=== PATIENT | female | born 1990 | race Caucasian/White ===

== ENCOUNTER 2021-02-01 07:56 | Emergency (ER) | payer MEDICAID, SELFPAY ==
--- NOTE | ~2021-02-01 | US_ITS ---
EXAMINATION: US OBSTETRICAL ULTRASOUND CLINICAL INFORMATION: 10 weeks . Bleeding. COMPARISON: None. LMP: 11/19/2020. Gestational age by maternal dates is 10 weeks 4 day. Estimated date of delivery by maternal dates is 08/26/2021. TECHNIQUE: Transabdominal OB ultrasound FINDINGS: There is a single intrauterine gestational sac with visible yolk sac, embryo/fetus, and cardiac activity. There is no significant subchorionic hemorrhage or hematoma. There is a posterior right uterine fibroid measuring 1.8 x 1.1 x 1.4 cm. HR: 163 beats per minute. CRL (crown rump length): 3.7 cm (10 weeks 5 days +/- 4 days). BRIAN (estimated date of delivery): 08/25/2021 +/- 4 days. MATERNAL ADNEXA: The right maternal ovary measures 2.5 x 2.1 x 2.7 cm. there is a 2.1 x 1.6 x 1.9 cm right ovarian cyst. The left maternal ovary is enlarged and measures 6.4 x 4.9 x 3.7 cm. There is a 5.3 x 4 x 3.2 cm slightly complex left ovarian cyst. Arterial and venous flow is documented to the left ovary. There is no significant maternal adnexal mass. No maternal pelvic ascites. US/US OB <= 14 weeks fetus IMPRESSION: 1. Single intrauterine gestation with ultrasound gestational age of 10 weeks 5 days +/- 4 days. 2. Estimated date of delivery is 08/25/2021 +/- 4 days. 3. Large 5.3 x 4 x 3.2 cm left ovarian cyst. Small right posterior uterine fibroid.
[2021-02-01 08:30] VITALS: BP 121/74; PULSE 90; RESP 18; TEMP 36.9; O2SAT 98; BMI 37.9
--- NOTE | 2021-02-01 08:58 | ED_ITS ---
HPI - Female Genitourinary General Chief complaint: Urogenital-Female Stated complaint: blood in urine, 10 weeks Time Seen by Provider: 02/01/21 08:35 Source: patient Mode of arrival: ambulatory Limitations: no limitations History of Present Illness HPI Narrative: 30 y/o female G1 who is 10 weeks presenting with new onset of light vaginal bleeding that started last night. She reports it has been light pink when she wipes after she urinates 3-4 times and she has some small pinkish area on her panty liner. No blood clots, tissue or dark blood passed. No abdominal pain, cramping or vaginal discharge. No dysuria. She is urinating more frequently the last 1 week. She is due to see her [facility]ER at the beginning of February. elicited complaint: vaginal bleeding Onset (ago): day(s) (1) Severity: mild Consistency: intermittent and improved Vaginal discharge: none Vaginal bleeding: scant Urinary symptoms: Frequency Exacerbating factors: none Relieving factors: none Associated symptoms: denies other symptoms Treatment prior to arrival: none Sexual activity: Yes Patient : Yes Possible : at home test positive Related Data : 1 Previous Rx's Medication Instructions Recorded cephalexin 500 mg PO Q8H #15 cap 02/01/21 Allergies Allergy/AdvReac Type Severity Reaction Status Date / Time shellfish derived Allergy Intermediate DIARRHEA/VO Unverified 07/29/20 15:49 [SHELLFISH DERIVED] MITING Review of Systems Review of Systems: Constitutional: No Fever, No Chills Cardiovascular: No Chest Pain, No SOB Respiratory: No Cough, No Sputum Gastrointestinal: No Nausea, No Vomiting, No Diarrhea, No abdominal Pain, No Hematochezia, No Melena Genitourinary: No Dysuria, + Urinary Frequency, No Hematuria, +vaginal bleeding Neuro: No Weakness,No Dizziness, Psych: + Anxiety/Panic PMFSH Past Medical History : 1 Social History Social History Advance Directives: Yes Advance Directives Information Provided: Yes Advance Directives on File: No Physical Exam Vital Signs: Vital Signs: Last Vital Signs Temp 98.4 F 02/01/21 08:30 Pulse 90 02/01/21 08:30 Resp 18 02/01/21 08:30 BP 121/74 02/01/21 08:30 Pulse Ox 98 02/01/21 08:30 Body Mass Index 37.9 Appearance: Alert. Oriented X3. No acute distress. Eyes: Pupils equal, round and reactive to light. ENT: Pharynx normal. Neck: Normal inspection. Neck supple. CVS: Normal heart rate and rhythm. Pulses normal. Respiratory: No respiratory distress. Breath sounds normal. Abdomen: Soft and nontender. +BS x4. Pelvic examination with no blood in vaginal vault, cervix is closed. Skin: Skin warm and dry. Normal skin color. Normal skin turgor. No rashes. Extremities: No lower extremity edema. Neuro: Oriented X 3. Non-focal, steady gait Course Course Course Narrative: 30 y/o female G1 who is 10 weeks presenting with painless light vaginal spotting since last night. No passing of clots and no pain. Will get basic lab workup as well as pelvic ultrasound and serum HCG. Doubt miscarriage given her clinical presentation. Reevaluation(s) Reevaluation #1: Pelvic U/S: IMPRESSION: 1. Single intrauterine gestation with ultrasound gestational age of 10 weeks 5 days +/- 4 days. 2. Estimated date of delivery is 08/25/2021 +/- 4 days. 3. Large 5.3 x 4 x 3.2 cm left ovarian cyst. Small right posterior uterine fibroid. UA is indicative of possible UTI. Will treat. This could be the cause of her spotting. She has been counseled on her lab results and US results. She was counseled on signs and symptoms of threatened and miscarriage. She will follow up with her [facility] as scheduled and come back to the ER if bleeding worsens or if she develops abdominal pain. Patient expressed understanding. She is stable for discharge. MDM - Female Genitourinary Medical Records Attestation: I reviewed the patient's medical records. Lab Data Attestation: I reviewed the patient's lab results. Result diagrams: 02/01/21 09:21 02/01/21 09:21 Labs: Lab Results 02/01/21 02/01/21 02/01/21 Range/Units 09:20 09:21 09:21 WBC 11.0 H (4.8-10.8) X10*3/uL RBC 4.84 (4.20-5.50) X10*6/uL Hgb 12.7 (12.0-16.0) g/dl Hct 39.3 (37-47) % MCV 81.2 (80-98) fL MCH 26.2 L (27.0-33.0) pg MCHC 32.3 (31.0-35.0) g/dl RDW 14.4 (11.0-16.0) % Plt Count 244 (160-400) X10*3/uL MPV 11.3 (9.4-12.3) fL Immature Gran % (Auto) 1.5 H (0.0-0.4) % Neut % (Auto) 77.2 H (45-73) % Lymph % (Auto) 13.6 L (20-40) % Emmons % (Auto) 6.5 (2-11) % Eos % (Auto) 0.7 (0-4) % Baso % (Auto) 0.5 (0-2) % Lymph # (Auto) 1.5 (1.2-4.9) X10*3/uL Emmons # (Auto) 0.7 (0.1-1.2) X10*3/uL Eos # (Auto) 0.1 (0.0-0.4) X10*3/uL Baso # (Auto) 0.1 (0.0-0.2) X10*3/uL Abs Immat Gran (auto) 0.17 H (0.00-0.03) X10*3/uL Absolute Neuts (auto) 8.5 H (2.0-8.3) X10*3/uL Absolute Nucleated RBC 0.000 (0.0-0.012) X10*3/uL Nucleated RBC % (auto) 0.0 (0.0-0.2) /100WBC Sodium 137 (135-145) mmol/L Potassium 4.0 (3.3-5.1) mmol/L Chloride 108 (96-108) mmol/L Carbon Dioxide 22 (22-29) mmol/L Anion Gap 11 L (12-20) BUN 5 L (9-16) mg/dL Creatinine 0.61 (0.5-1.4) mg/dL Estim Creat Clear Calc 136.0 Estimated GFR > 60 Random Glucose 84 (60-115) mg/dL Calcium 8.7 (8.4-10.2) mg/dL Magnesium 2.0 (1.6-2.6) mg/dL Total Bilirubin 0.5 (0.0-1.0) mg/dL Direct Bilirubin < 0.2 (0.0-0.5) mg/dL AST 22 (5-31) U/L ALT 33 H (0-31) U/L Alkaline Phosphatase 68 (39-117) U/L Total Protein 6.7 (6.5-8.0) g/dL Albumin 3.8 (3.5-5.0) g/dL Beta HCG, Quant 085322 mIU/mL Urine Color Urine Appearance Urine pH (5.0-8.0) Ur Specific [place] (1.005-1.025) Urine Protein (NEG-TRACE) MG/DL Urine Glucose (UA) (NEG) MG/DL Urine Ketones (NEG) MG/DL Urine Blood (NEG) Urine Nitrite (NEG) Ur Leukocyte Esterase (NEG) Urine RBC (0) /HPF Urine WBC (0-4) /HPF Ur Squamous Epith Cells /LPF Urine Bacteria /LPF Urine Mucus /LPF Urine Test POSITIVE H (NEGATIVE) 02/01/21 Range/Units 09:21 WBC (4.8-10.8) X10*3/uL RBC (4.20-5.50) X10*6/uL Hgb (12.0-16.0) g/dl Hct (37-47) % MCV (80-98) fL MCH (27.0-33.0) pg MCHC (31.0-35.0) g/dl RDW (11.0-16.0) % Plt Count (160-400) X10*3/uL MPV (9.4-12.3) fL Immature Gran % (Auto) (0.0-0.4) % Neut % (Auto) (45-73) % Lymph % (Auto) (20-40) % Emmons % (Auto) (2-11) % Eos % (Auto) (0-4) % Baso % (Auto) (0-2) % Lymph # (Auto) (1.2-4.9) X10*3/uL Emmons # (Auto) (0.1-1.2) X10*3/uL Eos # (Auto) (0.0-0.4) X10*3/uL Baso # (Auto) (0.0-0.2) X10*3/uL Abs Immat Gran (auto) (0.00-0.03) X10*3/uL Absolute Neuts (auto) (2.0-8.3) X10*3/uL Absolute Nucleated RBC (0.0-0.012) X10*3/uL Nucleated RBC % (auto) (0.0-0.2) /100WBC Sodium (135-145) mmol/L Potassium (3.3-5.1) mmol/L Chloride (96-108) mmol/L Carbon Dioxide (22-29) mmol/L Anion Gap (12-20) BUN (9-16) mg/dL Creatinine (0.5-1.4) mg/dL Estim Creat Clear Calc Estimated GFR Random Glucose (60-115) mg/dL Calcium (8.4-10.2) mg/dL Magnesium (1.6-2.6) mg/dL Total Bilirubin (0.0-1.0) mg/dL Direct Bilirubin (0.0-0.5) mg/dL AST (5-31) U/L ALT (0-31) U/L Alkaline Phosphatase (39-117) U/L Total Protein (6.5-8.0) g/dL Albumin (3.5-5.0) g/dL Beta HCG, Quant mIU/mL Urine Color YELLOW Urine Appearance HAZY Urine pH 8.5 H (5.0-8.0) Ur Specific [place] 1.020 (1.005-1.025) Urine Protein NEG (NEG-TRACE) MG/DL Urine Glucose (UA) NEG (NEG) MG/DL Urine Ketones NEG (NEG) MG/DL Urine Blood 3+ H (NEG) Urine Nitrite NEG (NEG) Ur Leukocyte Esterase 1+ H (NEG) Urine RBC 5-9 H (0) /HPF Urine WBC 15-29 H (0-4) /HPF Ur Squamous Epith Cells 3+ /LPF Urine Bacteria 2+ /LPF Urine Mucus 1+ /LPF Urine Test (NEGATIVE) Critical Care Time Critical Care Time Critical Care Time: No Discharge Plan Discharge Clinical Impression: Urinary tract infection Qualifiers: Urinary tract infection type: acute cystitis Hematuria presence: with hematuria Qualified Code(s): N30.01 - Acute cystitis with hematuria Qualifiers: Weeks of gestation: 10 weeks Qualified Code(s): Z3A.10 - 10 weeks gestation of Ovarian cyst Qualifiers: Laterality: left Qualified Code(s): N83.202 - Unspecified ovarian cyst, left side Uterine fibroid Qualifiers: Uterine leiomyoma location: unspecified location Qualified Code(s): D25.9 - Leiomyoma of uterus, unspecified Patient Disposition: Home, Self-Care Instructions: Urinary Tract Infection in (ED), at 11 to 14 Weeks (ED) Additional Instructions: Your lab workup today showed a possible urinary tract infection. Take the prescribed antibiotic as directed for this. Drink plenty of water and stay hydrated. Your ultrasound today showed an intrauterine with estimated due date of 08/25/21. It also showed an ovarian cyst on the left side and a small uterine fibroid. Recommend following up with your [facility] as scheduled. If you develop worsening vaginal bleeding or develop abdominal pain and cramping, come back to the ER for further evaluation. Prescriptions: New cephalexin 500 mg capsule 500 mg PO Q8H Qty: 15 RF: 0 Discharge Date/Time: 02/01/21 11:26
[2021-02-01 09:27] LABS: MANUAL DIFF FLAG NO
[2021-02-01 09:29] LABS: Basophils Absolute Auto 0.1 X10*3/uL (0.0-0.2); Basophils Percent Auto 0.5 % (0-2); Eosinophils Absolute Auto 0.1 X10*3/uL (0.0-0.4); Eosinophils Percent Auto 0.7 % (0-4); Hematocrit 39.3 % (37-47); Hemoglobin 12.7 g/dl (12.0-16.0); Imm Gran Abs Auto 0.17 X10*3/uL (0.00-0.03); Imm Gran Pct Auto 1.5 % (0.0-0.4); Lymphocytes Absolute Auto 1.5 X10*3/uL (1.2-4.9); Lymphocytes Percent Auto 13.6 % (20-40); Mean Corpuscular HGB Conc 32.3 g/dl (31.0-35.0); Mean Corpuscular Hemoglobin 26.2 pg (27.0-33.0); Mean Corpuscular Volume 81.2 fL (80-98); Mean Platelet Volume 11.3 fL (9.4-12.3); Monocytes Absolute Auto 0.7 X10*3/uL (0.1-1.2); Monocytes Percent Auto 6.5 % (2-11); Neutrophils Absolute Auto 8.5 X10*3/uL (2.0-8.3); Neutrophils Percent Auto 77.2 % (45-73); Platelet Count 244 X10*3/uL (160-400); Red Blood Count 4.84 X10*6/uL (4.20-5.50); Red Cell Distribution Width 14.4 % (11.0-16.0)
[2021-02-01 09:35] LABS: Glucose Urine UA NEG (NEG); Leukocyte Esterase Urine 1+ (NEG); Nitrite Urine NEG (NEG); PH 8.5 (5.0-8.0); UACC Culture Trigger YES; Urine Blood 3+ (NEG); Urine Ketones NEG (NEG); Urine Protein NEG (NEG-TRACE)
[2021-02-01 09:35] LABS: UPreg QC Valid YES; Urine Pregnancy POSITIVE (NEGATIVE)
[2021-02-01 09:37] LABS: Appearance Urine HAZY; Color Urine YELLOW
[2021-02-01 09:47] LABS: Bacteria Urine 2+ /LPF; Mucus Urine 1+ /LPF; Squamous Epithelial Cell Urine 3+ /LPF
[2021-02-01 09:58] LABS: Alanine Aminotransferase 33 U/L (0-31); Albumin Level 3.8 g/dL (3.5-5.0); Alkaline Phosphatase 68 U/L (39-117); Anion Gap 11 (12-20); Aspartate Amino Transferase 22 U/L (5-31); Bilirubin Direct < 0.2 mg/dL (0.0-0.5); Bilirubin Total 0.5 mg/dL (0.0-1.0); Blood Urea Nitrogen 5 mg/dL (9-16); Calcium 8.7 mg/dL (8.4-10.2); Carbon Dioxide 22 mmol/L (22-29); Chloride 108 mmol/L (96-108); Estimated Glomerular Filt Rate > 60; Glucose Random 84 mg/dL (60-115); Sodium 137 mmol/L (135-145); Total Protein 6.7 g/dL (6.5-8.0)
[2021-02-01 10:00] VITALS: BP 120/68; PULSE 88; RESP 18; TEMP 36.9; O2SAT 98
== END 2021-02-01 11:26 | disposition home or self-care (01) ==
PROVIDERS: Physician Assistant; Emergency Provider Emergency Medicine Emergency Medical Services; PCP Internal Medicine
DX: O23.11 Infections of bladder in pregnancy, first trimester (principal); N30.01 Acute cystitis with hematuria; O34.81 Maternal care for other abnormalities of pelvic organs, first trimester; N83.292 Other ovarian cyst, left side; O34.11 Maternal care for benign tumor of corpus uteri, first trimester; Z3A.10 10 weeks gestation of pregnancy
CPT/HCPCS: 36415; 76801; 80048; 80076; 81001; 81003; 81025; 83735; 84702; 85025; 87086; 99284

== ENCOUNTER 2021-03-17 13:47 | Outpatient (REF) | payer OTHER, SELFPAY ==
[2021-03-17 14:18] LABS: COVID-19 Test Negative (Negative); IDNOW Serial# 55D5AD1C
== END 2021-03-17 13:48 | disposition home or self-care (01) ==
LOC: HO.LAB 13:47
PROVIDERS: Visit Provider Internal Medicine
DX: Z20.822 Contact with and (suspected) exposure to COVID-19 (principal)
CPT/HCPCS: 36415; 87635; C9803

== ENCOUNTER 2022-02-02 14:30 | Emergency (ER) | payer OTHER, SELFPAY ==
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
[2022-02-02 15:08] VITALS: BP 126/71; PULSE 94; RESP 16; TEMP 36.3; O2SAT 99; BMI 37.8
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
[2022-02-02 16:49] VITALS: BP 130/66; PULSE 76; RESP 18; O2SAT 99
== END 2022-02-02 16:57 | disposition home or self-care (01) ==
PROVIDERS: Emergency Provider Emergency Medicine; PCP Internal Medicine
DX: S80.02XA Contusion of left knee, initial encounter (principal); S40.012A Contusion of left shoulder, initial encounter; S16.1XXA Strain of muscle, fascia and tendon at neck level, initial encounter; S39.012A Strain of muscle, fascia and tendon of lower back, initial encounter; V43.62XA Car passenger injured in collision with other type car in traffic accident, initial encounter; Y93.89 Activity, other specified; Y92.414 Local residential or business street as the place of occurrence of the external cause; Y99.9 Unspecified external cause status
CPT/HCPCS: 72100; 73030; 73562; 99283; 99284

== ENCOUNTER 2022-08-24 22:15 | Emergency (ER) | payer OTHER, SELFPAY ==
--- NOTE | 2022-08-24 22:16 | ECG_ITS ---
Test Reason : dizness Blood Pressure : / mmHG Vent. Rate : 078 BPM Atrial Rate : 078 BPM P-R Int : 138 ms QRS Dur : 080 ms QT Int : 366 ms P-R-T Axes : 036 041 011 degrees QTc Int : 417 ms Normal sinus rhythm Normal ECG When compared with ECG of 10-DEC-2003 22:37, PREVIOUS ECG IS PRESENT No significant changes seen Referred By: Generic ED Physician Electronically Signed By:INES CARVER MD
[2022-08-24 22:17] VITALS: BP 119/72; PULSE 96; RESP 18; TEMP 37.2; O2SAT 99; BMI 47.2
[2022-08-24 22:43] LABS: MANUAL DIFF FLAG NO
[2022-08-24 22:45] LABS: Basophils Percent Auto 0.4 % (0-2); Eosinophils Absolute Auto 0.1 X10*3/uL (0.0-0.4); Eosinophils Percent Auto 1.3 % (0-4); Hematocrit 40.6 % (37.0-47.0); Hemoglobin 12.9 g/dl (12.0-16.0); Lymphocytes Absolute Auto 2.3 X10*3/uL (1.2-4.9); Mean Corpuscular HGB Conc 31.8 g/dl (31.0-35.0); Mean Corpuscular Hemoglobin 25.9 pg (27.0-33.0); Mean Corpuscular Volume 81.4 fL (80.0-98.0); Mean Platelet Volume 10.7 fL (9.4-12.3); Monocytes Absolute Auto 0.7 X10*3/uL (0.1-1.2); Monocytes Percent Auto 6.5 % (2-11); Neutrophils Absolute Auto 7.1 x10*3/uL (2.0-8.3); Neutrophils Percent Auto 68.8 % (45-73); Platelet Count 267 X10*3/uL (160-400); Red Blood Count 4.99 X10*6/uL (4.20-5.50); Red Cell Distribution Width 13.3 % (11.0-16.0); White Blood Count 10.2 X10*3/uL (4.8-10.8)
[2022-08-24 23:03] LABS: COVID-19 Test Negative (Negative)
[2022-08-24 23:11] LABS: Alanine Aminotransferase 107 U/L (0-31); Alkaline Phosphatase 114 U/L (39-117); Anion Gap 14 (12-20); Aspartate Amino Transferase 70 U/L (5-31); Bilirubin Direct < 0.2 mg/dL (0.0-0.5); Bilirubin Total 0.2 mg/dL (0.0-1.0); Blood Urea Nitrogen 9 mg/dL (9-16); Calcium 8.8 mg/dL (8.4-10.2); Carbon Dioxide 22 mmol/L (22-29); Chloride 107 mmol/L (96-108); Creatinine Clr Calc Pharmacy 128.6; Estimated Glomerular Filt Rate > 60; Glucose Random 88 mg/dL (60-115); Lipase 13 U/L (8-78); Potassium 3.9 mmol/L (3.3-5.1); Sodium 139 mmol/L (135-145); Total Protein 7.1 g/dL (6.5-8.0); Troponin-I High Sensitivity < 3.5 ng/L (<3.5-17.0)
[2022-08-24 23:16] LABS: Appearance Urine Clear; Color Urine Yellow; Glucose Urine UA Negative (Negative); Leukocyte Esterase Urine Negative (Negative); Nitrite Urine Negative (Negative); PH 5.5 (5.0-9.0); Specific Gravity - Urine >= 1.030 (1.005-1.025); Urine Blood Negative (Negative); Urine Ketones Negative (Negative); Urine Protein Trace mg/dL (Neg-Trace)
[2022-08-24 23:18] LABS: UPreg QC Valid YES; Urine Pregnancy NEGATIVE (NEGATIVE)
[2022-08-25 00:25] VITALS: BP 112/66; PULSE 76; RESP 16; TEMP 36.7; O2SAT 97
--- NOTE | 2022-08-25 01:27 | ED.DIZZY ---
HPI - Dizziness General Chief Complaint: Dizziness Stated Complaint: dizziness,nausea Time Seen by Provider: 08/25/22 01:24 Source: patient Mode of arrival: ambulatory Limitations: no limitations History of Present Illness HPI Narrative: Patient having nausea for last few weeks become very dizzy today and had a left-sided headache does have history of tension headache no abdominal pain no vomiting Related Data Previous Rx's Medication Instructions Recorded cephalexin 500 mg capsule 500 mg PO Q8H #15 caps 02/01/21 [id number]-mzohcmztmnwis-yqizmrtx 1 cap PO Q6H PRN headache #20 caps 08/25/22 50 mg-300 mg-40 mg capsule (Fioricet) meclizine 25 mg tablet 25 mg PO TID PRN dizziness #20 tabs 08/25/22 Allergies Allergy/AdvReac Type Severity Reaction Status Date / Time shellfish derived Allergy Intermediate DIARRHEA/VO Verified 02/02/22 15:11 [SHELLFISH DERIVED] MITING Review of Systems Review of Systems: Yes all other systems are reviewed and are negative [facility] Past Medical History Medical History No known health problems Social History Social History Advance Directives: No Advance Directives Information Provided: No Physical Exam Vital Signs: Vital Signs: Last Vital Signs Temp 98.0 F 08/25/22 00:25 Pulse 76 08/25/22 00:25 Resp 16 08/25/22 00:25 BP 112/66 08/25/22 00:25 Pulse Ox 97 08/25/22 00:25 O2 Del Method 08/25/22 00:25 BMI result Body Mass Index 47.2 Appearance: Alert. Oriented X3. No acute distress. Eyes: PERRLA, No Nystagmus ENT: Pharynx normal. Oral Mucosa moist Neck: Normal inspection. Neck supple. CVS: Normal heart rate and rhythm. Pulses normal. Respiratory: No respiratory distress. Equal air entry bilateral, no wheezing/rales/rhonchi Abdomen: Soft and nontender. Bowel sounds are present, no mass palpable, no CVA tenderness Skin: Skin warm and dry. Normal skin color. Normal skin turgor. Extremities: No lower extremity edema. No calf tenderness Neuro: Oriented X 3. No motor deficit. No sensory deficit.No cerebellar signs , cranial nerves II-XII intact MDM - Dizziness MDM Narrative Medical decision making narrative: Patient with benign positional vertigo feeling much better after meclizine discharge patient home Lab Data Attestation: I reviewed the patient's lab results. Result diagrams: 08/24/22 22:37 08/24/22 22:37 Labs: Lab Results 08/24/22 08/24/22 08/24/22 Range/Units 22:37 22:37 22:37 WBC 10.2 (4.8-10.8) X10*3/uL RBC 4.99 (4.20-5.50) X10*6/uL Hgb 12.9 (12.0-16.0) g/dl Hct 40.6 (37.0-47.0) % MCV 81.4 (80.0-98.0) fL MCH 25.9 L (27.0-33.0) pg MCHC 31.8 (31.0-35.0) g/dl RDW 13.3 (11.0-16.0) % Plt Count 267 (160-400) X10*3/uL MPV 10.7 (9.4-12.3) fL Immature Gran % (Auto) 1.0 H (0.0-0.4) % Neut % (Auto) 68.8 (45-73) % Lymph % (Auto) 22.0 (20-40) % Graves % (Auto) 6.5 (2-11) % Eos % (Auto) 1.3 (0-4) % Baso % (Auto) 0.4 (0-2) % Lymph # (Auto) 2.3 (1.2-4.9) X10*3/uL Graves # (Auto) 0.7 (0.1-1.2) X10*3/uL Eos # (Auto) 0.1 (0.0-0.4) X10*3/uL Baso # (Auto) 0.0 (0.0-0.2) X10*3/uL Abs Immat Gran (auto) 0.10 H (0.00-0.03) X10*3/uL Absolute Neuts (auto) 7.1 (2.0-8.3) x10*3/uL Absolute Nucleated RBC 0.000 (0.0-0.012) X10*3/uL Nucleated RBC % (auto) 0.0 (0.0-0.2) /100WBC Sodium 139 (135-145) mmol/L Potassium 3.9 (3.3-5.1) mmol/L Chloride 107 (96-108) mmol/L Carbon Dioxide 22 (22-29) mmol/L Anion Gap 14 (12-20) BUN 9 (9-16) mg/dL Creatinine 0.72 (0.5-1.4) mg/dL Estim Creat Clear Calc 128.6 Estimated GFR > 60 Random Glucose 88 (60-115) mg/dL Calcium 8.8 (8.4-10.2) mg/dL Total Bilirubin 0.2 (0.0-1.0) mg/dL Direct Bilirubin < 0.2 (0.0-0.5) mg/dL AST 70 H (5-31) U/L ALT 107 H (0-31) U/L Alkaline Phosphatase 114 D (39-117) U/L Troponin I High Sens (<3.5-17.0) ng/L Total Protein 7.1 (6.5-8.0) g/dL Albumin 4.0 (3.5-5.0) g/dL Lipase 13 (8-78) U/L Urine Color Urine Appearance Urine pH (5.0-9.0) Ur Specific [place] (1.005-1.025) Urine Protein (Neg-Trace) mg/dL Urine Glucose (UA) (Negative) mg/dL Urine Ketones (Negative) mg/dL Urine Blood (Negative) Urine Nitrite (Negative) Ur Leukocyte Esterase (Negative) Urine Test (NEGATIVE) COVID-19 (TREVOR) Negative (Negative) COVID-19 Clin Com See Note 08/24/22 08/24/22 08/24/22 Range/Units 22:37 23:06 23:06 WBC (4.8-10.8) X10*3/uL RBC (4.20-5.50) X10*6/uL Hgb (12.0-16.0) g/dl Hct (37.0-47.0) % MCV (80.0-98.0) fL MCH (27.0-33.0) pg MCHC (31.0-35.0) g/dl RDW (11.0-16.0) % Plt Count (160-400) X10*3/uL MPV (9.4-12.3) fL Immature Gran % (Auto) (0.0-0.4) % Neut % (Auto) (45-73) % Lymph % (Auto) (20-40) % Graves % (Auto) (2-11) % Eos % (Auto) (0-4) % Baso % (Auto) (0-2) % Lymph # (Auto) (1.2-4.9) X10*3/uL Graves # (Auto) (0.1-1.2) X10*3/uL Eos # (Auto) (0.0-0.4) X10*3/uL Baso # (Auto) (0.0-0.2) X10*3/uL Abs Immat Gran (auto) (0.00-0.03) X10*3/uL Absolute Neuts (auto) (2.0-8.3) x10*3/uL Absolute Nucleated RBC (0.0-0.012) X10*3/uL Nucleated RBC % (auto) (0.0-0.2) /100WBC Sodium (135-145) mmol/L Potassium (3.3-5.1) mmol/L Chloride (96-108) mmol/L Carbon Dioxide (22-29) mmol/L Anion Gap (12-20) BUN (9-16) mg/dL Creatinine (0.5-1.4) mg/dL Estim Creat Clear Calc Estimated GFR Random Glucose (60-115) mg/dL Calcium (8.4-10.2) mg/dL Total Bilirubin (0.0-1.0) mg/dL Direct Bilirubin (0.0-0.5) mg/dL AST (5-31) U/L ALT (0-31) U/L Alkaline Phosphatase (39-117) U/L Troponin I High Sens < 3.5 (<3.5-17.0) ng/L Total Protein (6.5-8.0) g/dL Albumin (3.5-5.0) g/dL Lipase (8-78) U/L Urine Color Yellow Urine Appearance Clear Urine pH 5.5 (5.0-9.0) Ur Specific [place] >= 1.030 H (1.005-1.025) Urine Protein Trace (Neg-Trace) mg/dL Urine Glucose (UA) Negative (Negative) mg/dL Urine Ketones Negative (Negative) mg/dL Urine Blood Negative (Negative) Urine Nitrite Negative (Negative) Ur Leukocyte Esterase Negative (Negative) Urine Test NEGATIVE (NEGATIVE) COVID-19 (TREVOR) (Negative) COVID-19 Clin Com Discharge Plan Discharge Clinical Impression: Benign paroxysmal positional vertigo, Migraine Patient Disposition: Home, Self-Care Instructions: Migraine Headache (ED), Benign Paroxysmal Positional Vertigo (ED) Additional Instructions: Rest at home Take medication as prescribed for headache and vertigo Prescriptions: New rovsksosbe-qtejkoujsnucw-gujj [Fioricet] 50-300-40 mg capsule 1 cap PO Q6H PRN (Reason: headache) Qty: 20 0RF meclizine 25 mg tablet 25 mg PO TID PRN (Reason: dizziness) Qty: 20 0RF No Action cephalexin 500 mg capsule 500 mg PO Q8H Qty: 15 0RF
[2022-08-25] MEDS: Butalb/Acetamin/Caff 50/325/40 TABLET 1 TAB PO (01:37)
[2022-08-25] MEDS: Ondansetron ODT 4 MG TAB.RAPDIS TRANSLINGU (01:37)
[2022-08-25 04:28] VITALS: BP 118/72; PULSE 79; RESP 14; TEMP 36.9; O2SAT 99
== END 2022-08-25 04:29 | disposition home or self-care (01) ==
PROVIDERS: Emergency Provider Internal Medicine; PCP Internal Medicine
DX: H81.13 Benign paroxysmal vertigo, bilateral (principal); G43.909 Migraine, unspecified, not intractable, without status migrainosus; Z20.822 Contact with and (suspected) exposure to COVID-19; Z79.899 Other long term (current) drug therapy
CPT/HCPCS: 36415; 80053; 81003; 81025; 82248; 83690; 84484; 85025; 87635; 93005; 99283; 99285

== ENCOUNTER 2023-05-14 15:49 | Emergency (ER) | payer OTHER, SELFPAY ==
[2023-05-14 16:00] VITALS: BP 121/68; PULSE 80; RESP 18; TEMP 36.7; O2SAT 100; BMI 42.1
--- NOTE | 2023-05-14 16:02 | ED.GENADULT ---
HPI - General Adult General Chief complaint: Abdominal Pain Stated complaint: abd pain, lightheaded Time Seen by Provider: 05/14/23 21:28 Source: patient Mode of arrival: ambulatory Limitations: no limitations History of Present Illness HPI narrative: Patient otherwise healthy been having nausea vomiting and diarrhea for last 2 days more than 10 bowel movements and vomiting a day no fever no chills no recent travel no intake of any seafood or antibiotics Related Data Previous Rx's Medication Instructions Recorded cephalexin 500 mg capsule 500 mg PO Q8H #15 caps 02/01/21 [id number]-hgxtpfehiqrhd-xjmebybe 1 cap PO Q6H PRN headache #20 caps 08/25/22 50 mg-300 mg-40 mg capsule (Fioricet) meclizine 25 mg tablet 25 mg PO TID PRN dizziness #20 tabs 08/25/22 loperamide 2 mg tablet (Imodium 2 mg PO Q6H PRN loose stool #14 05/14/23 A-D) tabs ondansetron 4 mg disintegrating 4 mg PO Q6-8H PRN nausea and 05/14/23 tablet vomiting #10 tabs Allergies Allergy/AdvReac Type Severity Reaction Status Date / Time shellfish derived Allergy Intermediate DIARRHEA/VO Verified 02/02/22 15:11 [SHELLFISH DERIVED] MITING Review of Systems Review of Systems: Yes all other systems are reviewed and are negative [facility] Past Medical History Medical History No known health problems Social History Social History Smoked in Last 30 Days: No Use of substances other than those prescribed or required for medical reasons: No Advance Directives: No Advance Directives Information Provided: Yes Patient : No Physical Exam ED Vital Signs: Vital Signs - 24 hr 05/14/23 16:00 05/14/23 21:59 05/14/23 22:27 Temperature 98.1 F 98.4 F 97.5 F Pulse Rate 80 66 70 Respiratory Rate 18 15 12 Blood Pressure 121/68 125/70 140/83 H Pulse Oximetry 100 99 98 Oxygen Delivery Method Room Air Room Air Room Air BMI result Body Mass Index 42.1 Appearance: Alert. Oriented X3. No acute distress. Eyes: PERRLA, No Nystagmus ENT: Pharynx normal. Oral Mucosa moist Neck: Normal inspection. Neck supple. CVS: Normal heart rate and rhythm. Pulses normal. Respiratory: No respiratory distress. Equal air entry bilateral, Abdomen: Soft and nontender. Bowel sounds are present, no mass palpable, no CVA tenderness Skin: Skin warm and dry. Normal skin color. Normal skin turgor. Extremities: No lower extremity edema. No calf tenderness Neuro: Oriented X 3. No motor deficit. No sensory deficit.No cerebellar signs , Course Course Course Narrative: RME: 33 yold female presents to the ED for abdominal pain, vomitting, and diarrhea since yesterday. labs ordered Medications Administered Discontinued Medications Generic Name Dose Route Start Last Admin Trade Name Freq PRN Reason Stop Dose Admin Loperamide HCl 2 mg 05/14/23 21:53 05/14/23 22:24 Loperamide Hcl 2 Mg Capsule PO 05/14/23 21:54 2 mg ONCE ONE Administration Ondansetron HCl 4 mg 05/14/23 18:21 05/14/23 18:25 Ondansetron Odt 4 Mg Tab.Rapdis TRANSLINGU 05/14/23 18:22 4 mg ONCE ONE Administration Ondansetron HCl 4 mg 05/14/23 21:53 05/14/23 22:25 Ondansetron Odt 4 Mg Tab.Rapdis TRANSLINGU 05/14/23 21:54 4 mg ONCE ONE Administration Medical Decision Making Medical Decision Making [facility] Narrative: Patient with stable labs feeling much better after sublingual Zofran and Imodium taking p.o. fluids likely viral gastroenteritis Lab Data [facility] Lab Attestation statement: I reviewed the patient's lab results. 05/14/23 16:50 05/14/23 16:50 Labs: Lab Results 05/14/23 05/14/23 05/14/23 Range/Units 16:50 16:50 16:50 WBC 14.0 H (4.8-10.8) X10*3/uL RBC 5.05 (4.20-5.50) X10*6/uL Hgb 12.9 (12.0-16.0) g/dl Hct 41.6 (37.0-47.0) % MCV 82.4 (80.0-98.0) fL MCH 25.5 L (27.0-33.0) pg MCHC 31.0 (31.0-35.0) g/dl RDW 13.5 (11.0-16.0) % Plt Count 271 (160-400) X10*3/uL MPV 11.4 (9.4-12.3) fL Immature Gran % (Auto) 1.0 H (0.0-0.4) % Neut % (Auto) 81.2 H (45-73) % Lymph % (Auto) 10.7 L (20-40) % Rhea % (Auto) 6.3 (2-11) % Eos % (Auto) 0.4 (0-4) % Baso % (Auto) 0.4 (0-2) % Lymph # (Auto) 1.5 (1.2-4.9) X10*3/uL Rhea # (Auto) 0.9 (0.1-1.2) X10*3/uL Eos # (Auto) 0.1 (0.0-0.4) X10*3/uL Baso # (Auto) 0.1 (0.0-0.2) X10*3/uL Abs Immat Gran (auto) 0.14 H (0.00-0.03) X10*3/uL Absolute Neuts (auto) 11.4 H (2.0-8.3) x10*3/uL Absolute Nucleated RBC 0.000 (0.0-0.012) X10*3/uL Nucleated RBC % (auto) 0.0 (0.0-0.2) /100WBC Sodium 137 (135-145) mmol/L Potassium 3.7 (3.3-5.1) mmol/L Chloride 107 (96-108) mmol/L Carbon Dioxide 21 L (22-29) mmol/L Anion Gap 13 (12-20) BUN 9 (9-16) mg/dL Creatinine 0.70 (0.5-1.4) mg/dL Estim Creat Clear Calc 122.4 Estimated GFR > 60 Random Glucose 105 (60-115) mg/dL Calcium 9.3 (8.4-10.2) mg/dL Total Bilirubin 0.4 (0.0-1.0) mg/dL AST 13 (5-31) U/L ALT 23 (0-31) U/L Alkaline Phosphatase 74 (39-117) U/L Total Protein 7.5 (6.5-8.0) g/dL Albumin 4.0 (3.5-5.0) g/dL Lipase 10 (8-78) U/L Beta HCG, Quant < 2 mIU/mL Urine Color Urine Appearance Urine pH (5.0-9.0) Ur Specific [place] (1.005-1.025) Urine Protein (Neg-Trace) mg/dL Urine Glucose (UA) (Negative) mg/dL Urine Ketones (Negative) mg/dL Urine Blood (Negative) Urine Nitrite (Negative) Ur Leukocyte Esterase (Negative) 05/14/23 Range/Units 21:39 WBC (4.8-10.8) X10*3/uL RBC (4.20-5.50) X10*6/uL Hgb (12.0-16.0) g/dl Hct (37.0-47.0) % MCV (80.0-98.0) fL MCH (27.0-33.0) pg MCHC (31.0-35.0) g/dl RDW (11.0-16.0) % Plt Count (160-400) X10*3/uL MPV (9.4-12.3) fL Immature Gran % (Auto) (0.0-0.4) % Neut % (Auto) (45-73) % Lymph % (Auto) (20-40) % Rhea % (Auto) (2-11) % Eos % (Auto) (0-4) % Baso % (Auto) (0-2) % Lymph # (Auto) (1.2-4.9) X10*3/uL Rhea # (Auto) (0.1-1.2) X10*3/uL Eos # (Auto) (0.0-0.4) X10*3/uL Baso # (Auto) (0.0-0.2) X10*3/uL Abs Immat Gran (auto) (0.00-0.03) X10*3/uL Absolute Neuts (auto) (2.0-8.3) x10*3/uL Absolute Nucleated RBC (0.0-0.012) X10*3/uL Nucleated RBC % (auto) (0.0-0.2) /100WBC Sodium (135-145) mmol/L Potassium (3.3-5.1) mmol/L Chloride (96-108) mmol/L Carbon Dioxide (22-29) mmol/L Anion Gap (12-20) BUN (9-16) mg/dL Creatinine (0.5-1.4) mg/dL Estim Creat Clear Calc Estimated GFR Random Glucose (60-115) mg/dL Calcium (8.4-10.2) mg/dL Total Bilirubin (0.0-1.0) mg/dL AST (5-31) U/L ALT (0-31) U/L Alkaline Phosphatase (39-117) U/L Total Protein (6.5-8.0) g/dL Albumin (3.5-5.0) g/dL Lipase (8-78) U/L Beta HCG, Quant mIU/mL Urine Color Yellow Urine Appearance Clear Urine pH 6.5 (5.0-9.0) Ur Specific [place] >= 1.030 H (1.005-1.025) Urine Protein Trace (Neg-Trace) mg/dL Urine Glucose (UA) Negative (Negative) mg/dL Urine Ketones Trace (Negative) mg/dL Urine Blood Negative (Negative) Urine Nitrite Negative (Negative) Ur Leukocyte Esterase Negative (Negative) Discharge Plan Discharge Clinical Impression: Gastroenteritis Patient Disposition: Home, Self-Care Instructions: Gastroenteritis (ED) Additional Instructions: Drink plenty of fluid Medicine for nausea as prescribed Imodium for severe diarrhea Follow with PCP if not better Prescriptions: New loperamide [Imodium A-D] 2 mg tablet 2 mg PO Q6H PRN (Reason: loose stool) Qty: 14 0RF ondansetron 4 mg tablet,disintegrating 4 mg PO Q6-8H PRN (Reason: nausea and vomiting) Qty: 10 0RF No Action cephalexin 500 mg capsule 500 mg PO Q8H Qty: 15 0RF [id number]-[id number] [Fioricet] 50-300-40 mg capsule 1 cap PO Q6H PRN (Reason: headache) Qty: 20 0RF meclizine 25 mg tablet 25 mg PO TID PRN (Reason: dizziness) Qty: 20 0RF Interventions: ED Discharge Assessment Last Done: 05/14/23 23:16 Discharge Date/Time: 05/14/23 23:17
[2023-05-14 21:59] VITALS: BP 125/70; PULSE 66; RESP 15; TEMP 36.9; O2SAT 99
[2023-05-14 22:27] VITALS: BP 140/83; PULSE 70; RESP 12; TEMP 36.4; O2SAT 98
== END 2023-05-14 23:17 | disposition home or self-care (01) ==
PROVIDERS: Emergency Provider Internal Medicine; PCP Internal Medicine
DX: K52.9 Noninfective gastroenteritis and colitis, unspecified (principal); R11.2 Nausea with vomiting, unspecified
CPT/HCPCS: 36415; 80053; 81003; 83690; 84702; 85025; 99283; 99284

== ENCOUNTER 2024-02-15 09:06 | Outpatient (AMB) | payer OTHER, SELFPAY ==
[2024-02-15 09:05] VITALS: BP 112/80; PULSE 99; TEMP 36.6; O2SAT 98; BMI 43.1
--- NOTE | 2024-02-15 09:05 | MHC.OFFWIV ---
Intake Vital Signs 02/15/24 09:05 Height 5 ft 1 in Weight 228 lb BMI 43.1 BP 112/80 Blood Pressure Location Lt brachial Position Sitting Pulse 99 Pulse Source Pulse Oximeter Temp 97.9 F Temp Source Temporal Artery Scan Pulse Oximetry (%) 98 Oxygen Delivery Method Room Air Intake Visit Reasons: EP fell lft leg pain swelling (lobby) Intake Note: pt is here today for fell lft leg pain swelling started yesterday Allergies shellfish derived [SHELLFISH DERIVED] Allergy (Intermediate, Verified 02/15/24 09:09) DIARRHEA/VOMITING Do you need a note to return to daycare/school/sports/work: Yes HPI HPI Comments History of Present Illness Details This is a 33-year-old female presenting to the walk-in clinic complaining of left knee/ankle pain/swelling following a mechanical fall that occurred yesterday. Patient states she slipped on ice causing her to fall onto her knee and twist her left ankle. Patient was able to get up on her own. She reports occasional numbness in the left knee, which seems to occur with extension of the left knee. Otherwise, she denies any numbness/weakness/paresthesias. Patient is otherwise feeling well. She did not hit her head or lose consciousness. [facility] Medical History No known health problems Review of Systems Const All systems reviewed & are unremarkable except as noted in HPI and below Reports no additional complaints Eyes Reports no additional complaints ENT Reports no additional complaints Card Reports no additional complaints Resp Reports no additional complaints GI Reports no additional complaints Reports no additional complaints Musc Reports no additional complaints Skin/Breast Reports system reviewed and no additional complaints, except as documented Neuro Reports no additional complaints Psych Reports no additional complaints Endo Reports no additional complaints Shalom/Lymph Reports no additional complaints Aller/Immun Reports no additional complaints Physical Exam Vital Signs: Last Vital Signs Temp 97.9 F 02/15/24 09:05 Pulse 99 02/15/24 09:05 BP 112/80 02/15/24 09:05 Pulse Ox 98 02/15/24 09:05 Oxygen Delivery Method Room Air 02/15/24 09:05 BMI result Body Mass Index 43.1 Const Other: Vital signs reviewed. Constitutional: Non-toxic appearing. No acute distress. Well-developed and well-nourished. HEENT: Normocephalic and atraumatic. Skin: Warm and dry. No rashes or lesions noted. She has scattered abrasions to the anterior aspect of her distal left lower extremity. There is mild ecchymosis at the left knee. Neck: Full and painless range of motion. No cervical lymphadenopathy. Cardio: Regular rate. Pulmonary: No respiratory distress. No accessory muscle usage. Musculoskeletal: There is mild swelling to her left knee and left ankle. She has diffuse tenderness to palpation of the left knee of the lateral aspect, medial aspect, and frontal aspect of the patella. She has diffuse tenderness to palpation of the lateral/medial malleolus of the left ankle as well as the frontal aspect of the left ankle and painful range of motion with inversion of the left ankle. Neuro: Alert and oriented x4. Cranial nerves 2-12 grossly intact. No focal deficits appreciated. Psych: Normal mood and affect. Assessment & Plan Assessment & Plan (1) Sprain of left knee: Code(s): S83.92XA - Sprain of unspecified site of left knee, initial encounter Qualifiers: Encounter type: initial encounter Involved ligament of knee: unspecified ligament Qualified Code(s): S83.92XA - Sprain of unspecified site of left knee, initial encounter (2) Left ankle sprain: Code(s): S93.402A - Sprain of unspecified ligament of left ankle, initial encounter Qualifiers: Encounter type: initial encounter Involved ligament of ankle: unspecified ligament Qualified Code(s): S93.402A - Sprain of unspecified ligament of left ankle, initial encounter Plan: This is a 33-year-old female who presented to the office complaining of left ankle/knee swelling/pain following a mechanical fall that occurred yesterday. Physical examination, she has diffuse tenderness to palpation of the left ankle knee as well as mild swelling of the left ankle and left knee. Her history and physical appear to be most consistent with a sprain of the left knee/left ankle; however, a fracture can not be ruled out especially given tenderness to palpation of the medial/lateral malleolus of the left ankle as well as mild tenderness to palpation of the left patella though I do not high suspicion for an acute fracture. Unfortunately, we do not have x-ray available today and I explained this to the patient and informed her that she should proceed to the emergency room if she would like to definitively rule out a fracture. The patient declined at this time as I have low suspicion for fracture given her mechanism of injury. The patient's left knee/ankle were wrapped in an Tom bandage. Recommended rest/activity modification, ice to the area, elevation of the extremity, compression with tom bandage, and continue with acetaminophen/ibuprofen for pain management as long as patient has no medical contraindications. Patient was advised to follow-up here or proceed to the emergency room if she were to develop persistent or worsening symptoms. Patient was also offered orthopedic referral; however, she declined at this time and would like to try supportive management first. Plan This is a 33-year-old female who presented to the office complaining of left ankle/knee swelling/pain following a mechanical fall that occurred yesterday. Physical examination, she has diffuse tenderness to palpation of the left ankle knee as well as mild swelling of the left ankle and left knee. Her history and physical appear to be most consistent with a sprain of the left knee/left ankle; however, a fracture can not be ruled out especially given tenderness to palpation of the medial/lateral malleolus of the left ankle as well as mild tenderness to palpation of the left patella though I do not high suspicion for an acute fracture. Unfortunately, we do not have x-ray available today and I explained this to the patient and informed her that she should proceed to the emergency room if she would like to definitively rule out a fracture. The patient declined at this time as I have low suspicion for fracture given her mechanism of injury. The patient's left knee/ankle were wrapped in an Tom bandage. Recommended rest/activity modification, ice to the area, elevation of the extremity, compression with tom bandage, and continue with acetaminophen/ibuprofen for pain management as long as patient has no medical contraindications. Patient was advised to follow-up here or proceed to the emergency room if she were to develop persistent or worsening symptoms. Patient was also offered orthopedic referral; however, she declined at this time and would like to try supportive management first. Coding Level of Care Code Est Pt Level 3 (71802) Diagnoses Sprain of left knee, unspecified ligament, initial encounter S83.92XA Encounter type: initial encounter Involved ligament of knee: unspecified ligament Sprain of left ankle, unspecified ligament, initial encounter S93.402A Encounter type: initial encounter Involved ligament of ankle: unspecified ligament
== END 2024-02-15 09:31 | disposition home or self-care (01) ==
PROVIDERS: PCP Internal Medicine; Visit Provider Physician Assistant Medical
DX: S83.92XA Sprain of unspecified site of left knee, initial encounter (principal); S93.402A Sprain of unspecified ligament of left ankle, initial encounter
CPT/HCPCS: 99213

== ENCOUNTER 2024-07-04 17:05 | Emergency (ER) | payer OTHER, SELFPAY ==
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
[2024-07-04 17:20] VITALS: BP 131/52; PULSE 83; RESP 16; TEMP 36.5; O2SAT 97; BMI 43.5
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
[2024-07-04 17:45] LABS: MANUAL DIFF FLAG NO
[2024-07-04 17:54] LABS: Basophils Absolute Auto 0.1 X10*3/uL (0.0-0.2); Basophils Percent Auto 0.5 % (0-2); Eosinophils Absolute Auto 0.2 X10*3/uL (0.0-0.4); Eosinophils Percent Auto 1.8 % (0-4); Hematocrit 39.7 % (37.0-47.0); Hemoglobin 12.8 g/dl (12.0-16.0); Imm Gran Abs Auto 0.07 X10*3/uL (0.00-0.03); Imm Gran Pct Auto 0.7 % (0.0-0.4); Lymphocytes Absolute Auto 2.4 X10*3/uL (1.2-4.9); Lymphocytes Percent Auto 24.1 % (20-40); Mean Corpuscular HGB Conc 32.2 g/dl (31.0-35.0); Mean Corpuscular Hemoglobin 26.2 pg (27.0-33.0); Mean Corpuscular Volume 81.2 fL (80.0-98.0); Mean Platelet Volume 10.5 fL (9.4-12.3); Monocytes Absolute Auto 0.7 X10*3/uL (0.1-1.2); Monocytes Percent Auto 7.5 % (2-11); Neutrophils Absolute Auto 6.5 x10*3/uL (2.0-8.3); Neutrophils Percent Auto 65.4 % (45-73); Platelet Count 240 X10*3/uL (160-400); Red Blood Count 4.89 X10*6/uL (4.20-5.50); Red Cell Distribution Width 13.5 % (11.0-16.0); White Blood Count 9.9 X10*3/uL (4.8-10.8)
[2024-07-04 18:09] LABS: Alanine Aminotransferase 22 U/L (0-31); Albumin Level 3.9 g/dL (3.5-5.0); Alkaline Phosphatase 60 U/L (39-117); Anion Gap 9 (12-20); Aspartate Amino Transferase 17 U/L (5-31); Bilirubin Total 0.2 mg/dL (0.0-1.0); Blood Urea Nitrogen 10 mg/dL (9-16); Calcium 9.5 mg/dL (8.4-10.2); Carbon Dioxide 23 mmol/L (22-29); Chloride 109 mmol/L (96-108); Creatinine Clr Calc Pharmacy 123.4; Estimated Glomerular Filt Rate > 60; Glucose Random 98 mg/dL (60-115); Lipase 13 U/L (8-78); Magnesium 2.1 mg/dL (1.6-2.6); Sodium 137 mmol/L (135-145)
[2024-07-04 18:10] LABS: HCG Quantitative 14382 mIU/mL
[2024-07-04 21:55] VITALS: BP 119/59; PULSE 77; RESP 18; TEMP 37.1; O2SAT 100
[2024-07-04 23:02] VITALS: BP 119/59; PULSE 77; RESP 18; TEMP 37.1; O2SAT 100
== END 2024-07-04 23:03 | disposition home or self-care (01) ==
PROVIDERS: Physician Assistant Medical; Emergency Provider Emergency Medicine Emergency Medical Services; PCP Internal Medicine
DX: Z04.2 Encounter for examination and observation following work accident (principal); O26.891 Other specified pregnancy related conditions, first trimester; R10.9 Unspecified abdominal pain; Z3A.01 Less than 8 weeks gestation of pregnancy
CPT/HCPCS: 36415; 76801; 76817; 80053; 83690; 83735; 84702; 85025; 99283; 99284

== ENCOUNTER 2024-08-01 08:10 | Emergency (ER) | payer OTHER, SELFPAY ==
--- NOTE | ~2024-08-01 | US_ITS ---
EXAMINATION: US ABDOMEN LIMITED CLINICAL INFORMATION: Right upper quadrant pain. COMPARISON: CT abdomen/pelvis 06/04/2019. TECHNIQUE: Real-time imaging of the right upper quadrant abdominal viscera. FINDINGS: PANCREAS: Proximal pancreas is within normal limits. A portion of the body and the tail are not well seen due to shadowing from overlying bowel gas. LIVER: Normal. The liver is normal in size. The liver contour is normal. Parenchymal echogenicity is normal. No focal hepatic lesion. There is no intrahepatic biliary duct dilatation seen. GALLBLADDER: Gallbladder calculus measuring up to 2.5 cm. No gallbladder wall thickening. No significant right cholecystic free fluid. Positive Serna's sign. COMMON BILE DUCT: Normal in caliber measuring 0.5 cm in diameter. RIGHT KIDNEY: Normal. No hydronephrosis. No renal calculi or focal parenchymal lesions. The kidney measures 10.9 cm in maximum dimension. FREE FLUID: None. US/US abdomen limited IMPRESSION: Cholelithiasis with positive Serna's sign. However, no significant gallbladder wall thickening or pericholecystic free fluid are seen. Recommend clinical correlation for acute cholecystitis. Electronically signed by: Shirin Gutierrez MD 08/01/2024 10:46 AM EDT
--- NOTE | ~2024-08-01 | US_ITS ---
EXAMINATION: US OBSTETRICAL ULTRASOUND CLINICAL INFORMATION: Abdominal pain. COMPARISON: Pelvic ultrasound 07/04/2024. LMP: 05/30/2024. Gestational age by maternal dates is 9 weeks. Estimated date of delivery by maternal dates is 03/06/2025. TECHNIQUE: Ultrasound of the maternal pelvis is performed using transabdominal and transvaginal transducers. Transvaginal imaging is performed due to inadequate visualization transabdominally. M-mode Doppler is also performed. FINDINGS: There is a single intrauterine gestational sac with visible yolk sac, embryo/fetus, and cardiac activity. There is no significant subchorionic hemorrhage or hematoma. There is a 1.5 cm intramural fundal lesion, most likely a fibroid. HR: 158 beats per minute. CRL (crown rump length): 2.94 cm (9 weeks and 6 days +/- 4 days). BRIAN (estimated date of delivery): 02/28/2025 +/- 4 days. MATERNAL ADNEXA: There is a 5.4 x 3.6 x 4.7 cm complicated cyst in the left ovary with heterogeneity but no definite associated solid components; this could correlate with previously seen cyst in the left ovary measuring 5.3 x 4 x 3.2 cm on 02/01/2021 and 3.7 x 4.8 x 3.8 cm on 07/04/2024. Otherwise, normal morphology of the left ovary and normal morphology of the right ovary with preserved flow at the moment of this examination. No adnexal mass. No free fluid. US/US OB <= 14 weeks fetus IMPRESSION: 1. Single intrauterine gestation with ultrasound gestational age of 9 weeks and 6 days +/- 4 days. 2. Estimated date of delivery is 02/28/2025 +/- 4 days. 3. Redemonstration of complicated left ovarian cyst, similar to minimally increased in size from 2020, with previously described more complicated appearance for example on a pelvic ultrasound from 09/24/2018 where it demonstrated internal septations. 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 Electronically signed by: Shirin Gutierrez MD 08/01/2024 10:56 AM EDT
[2024-08-01 08:30] VITALS: BP 116/70; PULSE 91; RESP 16; TEMP 36.9; O2SAT 98; BMI 44.1
[2024-08-01 08:47] LABS: MANUAL DIFF FLAG NO
[2024-08-01 08:49] LABS: Appearance Urine Clear; Color Urine Dark Yellow; Glucose Urine UA Negative (Negative); Leukocyte Esterase Urine Small (1+) (Negative); Nitrite Urine Negative (Negative); PH 6.5 (5.0-9.0); UMIC TRIGGER UACC YES; Urine Blood Small (1+) (Negative); Urine Ketones Trace mg/dL (Negative); Urine Protein Negative (Neg-Trace)
[2024-08-01 08:54] LABS: Basophils Absolute Auto 0.1 X10*3/uL (0.0-0.2); Basophils Percent Auto 0.4 % (0-2); Eosinophils Absolute Auto 0.1 X10*3/uL (0.0-0.4); Hematocrit 41.2 % (37.0-47.0); Hemoglobin 13.5 g/dl (12.0-16.0); Imm Gran Abs Auto 0.17 X10*3/uL (0.00-0.03); Imm Gran Pct Auto 1.5 % (0.0-0.4); Lymphocytes Absolute Auto 1.8 X10*3/uL (1.2-4.9); Mean Corpuscular HGB Conc 32.8 g/dl (31.0-35.0); Mean Corpuscular Hemoglobin 26.7 pg (27.0-33.0); Mean Corpuscular Volume 81.6 fL (80.0-98.0); Mean Platelet Volume 10.9 fL (9.4-12.3); Monocytes Absolute Auto 0.7 X10*3/uL (0.1-1.2); Monocytes Percent Auto 5.6 % (2-11); Neutrophils Absolute Auto 8.9 x10*3/uL (2.0-8.3); Neutrophils Percent Auto 76.5 % (45-73); Platelet Count 239 X10*3/uL (160-400); Red Blood Count 5.05 X10*6/uL (4.20-5.50); Red Cell Distribution Width 13.7 % (11.0-16.0); White Blood Count 11.7 X10*3/uL (4.8-10.8)
--- NOTE | 2024-08-01 08:59 | ED_ITS ---
HPI - Abdominal Pain General Chief Complaint: Abdominal Pain Stated Complaint: cramping Time Seen by Provider: 08/01/24 08:45 Source: patient Mode of arrival: ambulatory Limitations: no limitations History of Present Illness ED Provider: Radha HPI narrative: 34yo F approx. 9 weeks gestation presents with burning and cramping 6/10 RUQ abdominal pain. Onset around 6pm last night, endorses nausea but denies recent vomiting (has had morning sickness the past few weeks). Denies fevers, chills, CP, SOB, vaginal bleeding/spotting, trauma to abdomen. Increased urinary frequency but denies dysuria. Followed by OBGYN and taking vitamins regularly Related Data Previous Rx's ?Medication ?Instructions ?Recorded cephalexin 500 mg capsule 500 mg PO Q8H #15 caps 02/01/21 bwhagnhxlt-ybeowmroxvcmt-ixcdnhzb 1 cap PO Q6H PRN headache #20 caps 08/25/22 50 mg-300 mg-40 mg capsule (Fioricet) meclizine 25 mg tablet 25 mg PO TID PRN dizziness #20 tabs 08/25/22 loperamide 2 mg tablet (Imodium 2 mg PO Q6H PRN loose stool #14 05/14/23 A-D) tabs ondansetron 4 mg disintegrating 4 mg PO Q6-8H PRN nausea and 05/14/23 tablet vomiting #10 tabs cefuroxime axetil 250 mg tablet 250 mg PO BID 7 days #14 tabs 08/01/24 Allergies Allergy/AdvReac Type Severity Reaction Status Date / Time shellfish derived Allergy Intermediate DIARRHEA/VO Verified 08/01/24 08:32 [SHELLFISH DERIVED] MITING Review of Systems Review of Systems Yes all other systems are reviewed and are negative [facility] Past Medical History Attestation statement: The following information was validated with the patient. Source: old records reviewed and nursing notes reviewed Medical History No known health problems Social History Social History Advance Directives: No Advance Directives Information Provided: Yes Physical Exam ED Vital Signs: Vital Signs - 24 hr 08/01/24 08:30 08/01/24 12:02 Temperature 98.5 F 98.0 F Pulse Rate 91 87 Respiratory Rate 16 16 Blood Pressure 116/70 112/58 L Pulse Oximetry 98 99 Oxygen Delivery Method Room Air Room Air BMI result Body Mass Index 44.1 VSS Appearance: Alert. Oriented X3. No acute distress. ? No accessory muscle use Head: Normal external exam. Normocephalic. Atraumatic. ? Eyes: PERRLA. Neck: ?Soft full range of motion, no JVD CVS: ?Heart regular rate and rhythm no murmurs and rubs Respiratory: ?Breath sounds are clear to auscultation bilaterally. Abdomen: ?Gravid abdomen. Soft, + RUQ tenderness. positive bowel sounds (+) [place] sign. Skin: Skin warm and dry.? Normal skin color.? Normal skin turgor. No rashes/lesions/lacerations noted. Extremities: No lower extremity edema. ? Extremities exhibit normal range of motion.? Neuro: Oriented X 3.? No motor deficit.? No sensory deficit.? Reflexes normal Course Reevaluation(s) Reevaluation #1: CBC with slight leukocytosis 11.7 this is likely normal variant and , no left shift less likely infectious in origin. Chemistry no acute findings needing intervention. Lipase normal. Beta hCG 182,529 consistent with a 9-10 week . UA with trace bacteria, patient does have urinary symptoms therefore will treat with p.o. antibiotics outpatient. Imaging pending Time: 10:41 Reevaluation #2: Patient was in significant pain, still having significant pain to the right upper quadrant, will give morphine for pain control I did explain that this is a narcotic it can be given in some risks could arise however she is willing to take that risk to treat the pain. Time: 14:07 Reevaluation #3: Patient decided not to take the morphine, just tylenol and pain is now essentially gone, no longer tender to palpation. Tolerating p.o.. Will have her follow-up with PCP and nurse obgyn. Educated patient on diagnosis and treatment plan, answered all question, patient verbalizes understanding. At this time patient will be discharged home, advised to return with new or worsening symptoms. Educated on worrisome signs and symptoms and when to return. At this time I feel comfortable discharge home. Time: 14:52 Medical Decision Making Medical Decision Making [facility] Narrative: 34yo F approx. 9 weeks gestation presents with burning and cramping abdominal pain. PE: ?Gravid abdomen. Soft, + RUQ tenderness. positive bowel sounds (+) [place] sign. Hx and PE concerning for cholecystitis. Less likely, cholangitis, obstruction, perforation, acute abdomen, spontaneous , ovarian torsion, appendicitis, choledocolithiasis Plan: US RUQ, labs, UA Differential Diagnosis Differential Diagnoses: The differential diagnosis associated with the presentation includes (Hx and PE concerning for cholecystitis. Less likely, cholangitis, obstruction, perforation, acute abdomen, spontaneous , ovarian torsion, appendicitis, choledocolithiasis) Admission/Observation Consideration of admission/observation: Escalation of care including admission/observation considered Possible Lab Data MDM Lab Attestation statement: I reviewed the patient's lab results. 08/01/24 08:42 08/01/24 08:42 Labs: Lab Results 08/01/24 Range/Units 08:42 WBC 11.7 H (4.8-10.8) X10*3/uL RBC 5.05 (4.20-5.50) X10*6/uL Hgb 13.5 (12.0-16.0) g/dl Hct 41.2 (37.0-47.0) % MCV 81.6 (80.0-98.0) fL MCH 26.7 L (27.0-33.0) pg MCHC 32.8 (31.0-35.0) g/dl RDW 13.7 (11.0-16.0) % Plt Count 239 (160-400) X10*3/uL MPV 10.9 (9.4-12.3) fL Immature Gran % (Auto) 1.5 H (0.0-0.4) % Neut % (Auto) 76.5 H (45-73) % Lymph % (Auto) 15.0 L (20-40) % [place] % (Auto) 5.6 (2-11) % Eos % (Auto) 1.0 (0-4) % Baso % (Auto) 0.4 (0-2) % Lymph # (Auto) 1.8 (1.2-4.9) X10*3/uL [place] # (Auto) 0.7 (0.1-1.2) X10*3/uL Eos # (Auto) 0.1 (0.0-0.4) X10*3/uL Baso # (Auto) 0.1 (0.0-0.2) X10*3/uL Abs Immat Gran (auto) 0.17 H (0.00-0.03) X10*3/uL Absolute Neuts (auto) 8.9 H (2.0-8.3) x10*3/uL Absolute Nucleated RBC 0.000 (0.0-0.012) X10*3/uL Nucleated RBC % (auto) 0.0 (0.0-0.2) /100WBC Sodium 137 (135-145) mmol/L Potassium 3.8 (3.3-5.1) mmol/L Chloride 110 H (96-108) mmol/L Carbon Dioxide 22 (22-29) mmol/L Anion Gap 9 L (12-20) BUN 6 L (9-16) mg/dL Creatinine 0.58 (0.5-1.4) mg/dL Estim Creat Clear Calc 150.3 Estimated GFR > 60 Random Glucose 92 (60-115) mg/dL Calcium 9.5 (8.4-10.2) mg/dL Total Bilirubin 0.3 (0.0-1.0) mg/dL Direct Bilirubin 0.1 (0.0-0.5) mg/dL AST 17 (5-31) U/L ALT 38 H (0-31) U/L Alkaline Phosphatase 69 (39-117) U/L Total Protein 7.2 (6.5-8.0) g/dL Albumin 3.7 (3.5-5.0) g/dL Lipase 9 (8-78) U/L Beta HCG, Quant 483096 mIU/mL Urine Color Dark Yellow Urine Appearance Clear Urine pH 6.5 (5.0-9.0) Ur Specific Philip 1.020 (1.005-1.025) Urine Protein Negative (Neg-Trace) mg/dL Urine Glucose (UA) Negative (Negative) mg/dL Urine Ketones Trace (Negative) mg/dL Urine Blood Small (1+) H (Negative) Urine Nitrite Negative (Negative) Ur Leukocyte Esterase Small (1+) H (Negative) Urine RBC 3-5 H (0-2) /HPF Urine WBC 0-5 (0-5) /HPF Ur Squamous Epith Cells 3-5 (0-2) /HPF Urine Bacteria Trace (None Seen) Hyaline Casts 0-2 (0-2) /LPF Independent Interpretation I performed an independent interpretation of an: Ultrasound Radiology Impression Discussion of test interpretation with radiology: I have reviewed the radiologist's reading. External Record Review External record reviewed: Inpatient record, Office record, Outpatient record, Prior outpatient labs, Prior outpatient radiology, Primary care record and Outside ED record Medications Administered Discontinued Medications Generic Name Dose Route Start Last Admin Trade Name Freq PRN Reason Stop Dose Admin Acetaminophen 650 mg 08/01/24 11:57 08/01/24 12:46 Acetaminophen 325 Mg Tablet PO 08/01/24 11:58 650 mg ONCE ONE Administration Sodium Chloride 1,000 mls @ 999 mls/hr 08/01/24 12:00 08/01/24 12:50 Ns IV 08/01/24 13:00 999 mls/hr .Q1H1M CHRIS Administration Critical Care Time Critical Care Time Critical Care Time: Yes Total Critical Care Time: 35 Attestation: I attest to this time spent taking care of the patient, obtaining history, physical, reviewing labs, imaging, treatment of patients condition +/- specialist/hospitalist consult Discharge Plan Discharge Clinical Impression: Abdominal pain, UTI (urinary tract infection) Patient Disposition: Home, Self-Care Instructions: Abdominal Pain (ED), Urinary Tract Infection in (ED) Additional Instructions: Take your medications as prescribed. If you were prescribed antibiotics today, it is important that you take your medication to their entirety, do not skip any doses, do not finish them early. Follow-up with your primary care provider this week. Return to the emergency department with new or worsening symptoms. Such as fevers, chills, chest pain, shortness of breath, nausea, vomiting, dizziness, headache, vision changes, lethargy In case of emergency call 911 Prescriptions: New cefuroxime axetil 250 mg tablet 250 mg PO BID 7 Days Qty: 14 0RF No Action cephalexin 500 mg capsule 500 mg PO Q8H Qty: 15 0RF wnvodhbhql-nnkhdlhodyvzh-aheo [Fioricet] 50-300-40 mg capsule 1 cap PO Q6H PRN (Reason: headache) Qty: 20 0RF meclizine 25 mg tablet 25 mg PO TID PRN (Reason: dizziness) Qty: 20 0RF loperamide [Imodium A-D] 2 mg tablet 2 mg PO Q6H PRN (Reason: loose stool) Qty: 14 0RF ondansetron 4 mg tablet,disintegrating 4 mg PO Q6-8H PRN (Reason: nausea and vomiting) Qty: 10 0RF Referrals: Brad Piper III, MD [Primary Care Provider] - 2 days Stand Alone Forms: Work/School Release Print Language: Mauritian
[2024-08-01 09:03] LABS: Bacteria Urine Trace (None Seen); Hyaline Casts Urine 0-2 /LPF (0-2); UACC Culture Trigger YES; WBC Urine 0-5 /HPF (0-5)
[2024-08-01 09:09] LABS: Alanine Aminotransferase 38 U/L (0-31); Albumin Level 3.7 g/dL (3.5-5.0); Alkaline Phosphatase 69 U/L (39-117); Anion Gap 9 (12-20); Aspartate Amino Transferase 17 U/L (5-31); Bilirubin Direct 0.1 mg/dL (0.0-0.5); Bilirubin Total 0.3 mg/dL (0.0-1.0); Blood Urea Nitrogen 6 mg/dL (9-16); Calcium 9.5 mg/dL (8.4-10.2); Carbon Dioxide 22 mmol/L (22-29); Chloride 110 mmol/L (96-108); Creatinine Clr Calc Pharmacy 150.3; Estimated Glomerular Filt Rate > 60; Glucose Random 92 mg/dL (60-115); Lipase 9 U/L (8-78); Potassium 3.8 mmol/L (3.3-5.1); Sodium 137 mmol/L (135-145); Total Protein 7.2 g/dL (6.5-8.0)
[2024-08-01 12:02] VITALS: BP 112/58; PULSE 87; RESP 16; TEMP 36.7; O2SAT 99
[2024-08-01] MEDS: Acetaminophen 325 MG TABLET 650 MG PO (12:46)
[2024-08-01] MEDS: 0.9 % Sodium Chloride 1,000 ML 999 ML IV (12:50)
[2024-08-01 14:58] VITALS: BP 115/55; PULSE 78; RESP 16; TEMP 36.7; O2SAT 97
[2024-08-01 15:52] VITALS: BP 115/55; PULSE 78; RESP 16; TEMP 36.7; O2SAT 97
== END 2024-08-01 15:53 | disposition home or self-care (01) ==
PROVIDERS: Emergency Provider Emergency Medicine; PCP Internal Medicine
DX: O26.891 Other specified pregnancy related conditions, first trimester (principal); O21.0 Mild hyperemesis gravidarum; O23.41 Unspecified infection of urinary tract in pregnancy, first trimester; N39.0 Urinary tract infection, site not specified; Z3A.09 9 weeks gestation of pregnancy; Z79.899 Other long term (current) drug therapy
CPT/HCPCS: 36415; 71275; 76705; 76801; 80048; 80076; 81001; 83690; 84702; 85025; 87086; 96360; 96361; 99284